=== PATIENT | male | born 1995 | race Asian ===

== ENCOUNTER 2021-12-24 20:43 | Emergency (ER) | payer OTHER ==
[2021-12-24 21:07] VITALS: BP 133/86; PULSE 64; TEMP 98.4; BMI 33.0
== END 2021-12-24 21:34 | disposition home or self-care (01) ==
LOC: JER 20:43
DX: S69.91XA Unspecified injury of right wrist, hand and finger(s), initial encounter (principal); W22.09XA Striking against other stationary object, initial encounter
CPT/HCPCS: 99281-25

== ENCOUNTER 2023-11-13 00:18 | Emergency (ER) | payer OTHER ==
[2023-11-13 00:32] VITALS: BP 151/84; PULSE 87; RESP 18; TEMP 98.4; BMI 33.0
[2023-11-13] MEDS: ACETAMINOPHEN 500 MG TABLET (FP) PO ONE (01:52)
== END 2023-11-13 01:57 | disposition home or self-care (01) ==
LOC: JER 00:18
DX: M79.641 Pain in right hand (principal)
CPT/HCPCS: 73110-TC-RT-FY; 73130-TC-RT-FY; 99283-25

== ENCOUNTER 2024-03-09 21:16 | Emergency (ER) | payer OTHER ==
[2024-03-09 21:20] VITALS: BP 130/88; PULSE 77; RESP 20; TEMP 98.4; BMI 33.7
== END 2024-03-09 22:17 | disposition home or self-care (01) ==
LOC: JERFT 21:16
DX: S99.912A Unspecified injury of left ankle, initial encounter (principal); X50.1XXA Overexertion from prolonged static or awkward postures, initial encounter
CPT/HCPCS: 73610-TC-LT-FY; 73630-TC-LT; 99283-25